=== PATIENT | male | born 1965 | race Caucasian/White ===

== ENCOUNTER → 2020-10-15 | Outpatient (CLI) | payer OTHER, SELFPAY ==
[2020-10-15 13:32] LABS: Lipase 279 U/L (73-393)
== END | disposition home or self-care (01) ==
LOC: LABSPEC 13:08
PROVIDERS: Referring Provider Family Medicine; Visit Provider Family Medicine
DX: R10.30 Lower abdominal pain, unspecified (principal)
CPT/HCPCS: 83690

== ENCOUNTER 2021-03-09 07:13 | Day surgery (SDC) | payer OTHER, SELFPAY ==
[2021-03-09] VITALS (7 sets, daily range): BP systolic 88–112; BP diastolic 53–84; PULSE 52–64; RESP 12–18; TEMP 35.8–36.3; O2SAT 98–100; BMI 22.5
[2021-03-09] MEDS: Lactated Ringers 1,000 ML 100 ML IV (07:55)
--- NOTE | 2021-03-09 08:25 | HP.PCM_ITS ---
History and Physical Date of Admission: 03/09/21 Intake Vital Signs 02/16/21 10:09 Height 5 ft 11 in Weight: 161 lb BMI 22.4 BP 113/77 Blood Pressure Location Rt brachial Position Sitting Respiration 16 Intake Visit Reasons: LEFT LOWER QUADRANT PAIN, CSCOPE Chief Complaint: llq abdominal pain Court Worker Required: No Is patient in pain?: Yes Allergies No Known Allergies Allergy (Verified 02/16/21 10:10) Medications azithromycin 250 mg tablet See Rx Instructions PO .COMPLEX #6 tab 02/16/21 [Rx Confirmed 02/16/21] cholecalciferol (vitamin D3) 50 mcg (2,000 unit) capsule 50 mcg PO DAILY 02/16/21 [History Confirmed 02/16/21] multivitamin 1 tab PO DAILY 02/16/21 [History Confirmed 02/16/21] omeprazole 40 mg capsule,delayed release 40 mg PO DAILY #60 cap 02/16/21 [Rx Confirmed 02/16/21] sucralfate 1 gram tablet 1 g PO QACHS #90 tab 02/16/21 [Rx Confirmed 02/16/21] PFSH Medical History Shoulder injury Family History Father Cancer Thyroid disorder Mother Asthma Social History Smoking Status: Never smoker alcohol intake: current alcohol intake frequency: a few times a week HPI HPI HPI: GALILEO DIEGO, is a 55 M who presents to the office today for several issues. The patient has been having left lower quadrant pain for years and he is only having diarrhea or very small bowel movements. The patient also reports left upper quadrant pain and GERD. Patient did try a short trial of omeprazole which did help his GERD but did not change the diarrhea or the bloating or lower abdominal pain. Patient has never had a colonoscopy in the past. He denies any family history of colon cancer. ROS General General: Yes weight change and fatigue; No appetite, colon cancer, breast cancer or weakness HEENT HEENT: Yes difficulty swallowing; No eye injury, eye surgery, swollen glands or hoarseness Endo Endocrine: Yes thyroid disease; No diabetes mellitus, thyroid cancer, Hair loss, heat intolerance or cold intolerance Skin Skin: Yes rash; No changing moles Breast Breast: No left breast lump, right breast lump, nipple discharge, breast pain, abnormal mammogram, abnormal US or breast enlargement Musc Musculoskeletal: Yes back problems, arthritis and rheumatoid arthritis; No gout or joint pain Cardio Cardiovascular: No murmur, pacemaker, heart disease, atrial fibrillation, high blood pressure, heart attack, heart stent, palpitations, shortness of breat with exertion or chest pain Psych Psychiatric: No depression, anxiety or hearing voices Resp Respiratory: No shortness of breath, No sleep apnea, Yes cough, No COPD, No asthma, No emphysema and No wheezing Gastro Gastrointestinal: Yes abdominal pain, No nausea or vomiting, Yes diarrhea, No constipation, No blood in stool, Yes acid reflux, No hemorrhoids, Yes ulcers, Yes gallbladder problem and Yes black,tarry stools [place] Hematologic: No blood thinners, No blood disorders, No bleeding, No anemia and No blood clots Neuro Neurologic: No system reviewed and no additional complaints, except as documented, No as per HPI, No abnormal gait, No abnormal hearing, No abnormal movements, No abnormal speech, No behavioral changes, No burning sensations, No confusion, No convulsions, No disequilibrium, No dizziness, No localized weakness, No frequent falls, No headache(s), No lack of coordination, No loss of vision, No memory loss, No numbness, No other visual disturbances, No radicular pain, No restless legs, No sensory deficit, No syncope, No tingling, No tremor(s), No weakness and No other Exam Const General: cooperative Orientation: alert and oriented x3 HENMT Head: normal to inspection Neck Neck: normal visual inspection and full ROM Chest Chest palpation & inspection: normal inspection of the chest Resp Effort & Inspection: normal respiratory effort Auscultation: clear to auscultation bilaterally Cardio Rate: regular rate Rhythm: regular rhythm GI Inspection: non-distended Palpation: soft and tender in the LLQ Skin General: no rashes or lesions noted Neuro General: patient alert and patient oriented x3 Extrem General: full ROM Psych Appearance: grossly normal Mental Status: mental status grossly normal Assessment and Plan Assessment and Plan (1) Diarrhea: Status: Acute Qualifiers: Diarrhea type: unspecified type Qualified Code(s): R19.7 - Diarrhea, unspecified (2) LLQ pain: Status: Acute (3) LUQ pain: Status: Acute (4) GERD (gastroesophageal reflux disease): Status: Acute Qualifiers: Esophagitis presence: esophagitis presence not specified Qualified Code(s): K21.9 - Gastro-esophageal reflux disease without esophagitis Orders: Orders: Colonoscopy Today R19.7, R10.32 EGD Today R10.12, K21.9 Plan - Dr. Alvin Mitchell MD: The patient is having diarrhea and has been having left lower quadrant pain for years and has never had a colonoscopy. Patient is also having left upper quadrant pain. The patient also describes stool caliber changes and chronic diarrhea. Patient recently had a CT scan which was normal. He denies any blood in his stool or nausea or vomiting. No fevers or chills. I will start the patient on omeprazole and Carafate. The patient was also having a sinus infection so I will give him a Z-Edmond. I will also plan on EGD and colonoscopy. I explained endoscopy in detail to the patient. I explained the risks including but not limited to stroke or heart attack with anesthesia, perforation of the GI tract, bleeding, infection. I explained that any of these could necessitate further emergency surgery. The patient understands and all questions were answered sufficiently. The patient wishes to proceed with procedure. Alvin Mitchell MD Pager: [facility] [address] [place] [address], [address] [place] [address] Office: I have re-examined the patient. There are no clinical changes since date of exam.
--- NOTE | 2021-03-09 08:30 | IMM_PTH ---
PATIENT: GALILEO DIEGO LOC: EN U#:[id number] AGE/SX: 55/M ROOM: RE03/09/[address]: Dr. Alvin Mitchell MD : 1965 BED: DIS: 03/09/2021 SPEC #: [id number] RECD: 03/09/21 12:29 STATUS: BERNABE SCOT #: [id number] LATHA: 03/09/21 08:[address]: Alvin Mitchell DEPT: IMMUNOHISTOCHEMISTRY RECD BY: Ludmila Lindsay ENTERED: 03/09/21 12:29 SP TYPE: IMMUNO OTHR DR: Dr. Marian Tran MD Tissues: A - Stomach, NOS Procedures: H Pylori (initial) PHYSICIAN & INSTITUTION [facility] [id number] SPECIMEN INFORMATION: Tissue Source: A ? Antrum biopsy Clinical Info: Diarrhea, LLQ pain, LUQ pain, GERD Specimen Number: [id number] CPT code: 56591 METHODOLOGY: Deparaffinized sections of prefer/formalin-fixed tissue or PAP/DQ stained slides are incubated with monoclonal/polyclonal antibodies/oligonucleotide probes. Localization is made via biotin free immunoperoxidase method. Appropriate controls are performed and reacted as expected. Results on target cell population are indicated in the following table: RESULTS: ANTIBODY / CLONE RESULT Block A H Pylori (polyclonal) negative These tests were developed and their performance characteristics determined by [facility]. They may not have been cleared or approved by the U.S. Food and Drug Administration. The FDA has determined that such clearance or approval is not necessary. INTERPRETATION: A. Antrum biopsy: Negative for Helicobacter pylori organisms. CHANCE:jose 03/10/2021
--- NOTE | 2021-03-09 08:30 | EGD_PTH ---
PATIENT: GALILEO DIEGO LOC: EN U#:[id number] AGE/SX: 55/M ROOM: RE03/09/[address]: Dr. Alvin Mitchell MD : 1965 BED: DIS: 03/09/2021 SPEC #: [id number] RECD: 03/09/21 11:42 STATUS: BERNABE SCOT #: [id number] LATHA: 03/09/21 08:[address]: Alvin Mitchell DEPT: SURGICAL PATHOLOGY RECD BY: Lizeth Solorzano ENTERED: 03/09/21 13:20 SP TYPE: EGD BIOPSY [facility] DR: Dr. Marian Tran MD Tissues: A - Gastric mucous membrane B - Stomach, NOS C - Cecum, NOS D - Cecum, NOS E - COLON BIOPSY F - Sigmoid colon biopsy Procedures: Surgery Specimen Level IV HEADER OPERATION: Colonoscopy, EGD ([facility] [place]) PRE-OP DIAGNOSIS: Diarrhea, LLQ pain, LUQ pain, GERD TISSUE SUBMITTED: A ? Biopsy antrum for H. pylori and path, B ? Biopsy GE junction, C ? Biopsy of cecal polyp, D ? Biopsy ileocecal valve, E ? Hepatic flexure polyp, F ? Sigmoid polyps MICROSCOPIC DIAGNOSIS A. Antrum, biopsy: Mild gastritis. See microscopic description and comment. B. GE junction, biopsy: Fragments of squamous mucosa with focal minimal chronic inflammation. C. Cecal polyp, biopsy: Fragments of tubulovillous adenoma. D. Ileocecal valve, biopsy: Focal acute inflammation, congestion and vascular ectasia. See comment. E. Hepatic flexure polyp, biopsy: Fragments of tubular adenoma. F. Sigmoid polyps, biopsy: Hyperplastic polyp. SJ:jose 03/10/2021 COMMENT A. The results of immunohistochemistry for Helicobacter pylori will be reported separately ([id number]). D. Cryptitis, crypt abscess or granulomas are not seen. Correlation with clinical, endoscopic findings and appropriate follow up are necessary. MICROSCOPIC DESCRIPTION Slides are reviewed. A. The specimen shows fragments of gastric mucosa with chronic inflammatory cell infiltrates in the lamina propria consisting of lymphocytes and plasma cells, consistent with mild chronic gastritis. GROSS DESCRIPTION A - Received in fixative is one container labeled with the patient's name and designated antrum biopsy. The specimen consists of two irregular fragments of light rosenthal soft tissue that in aggregate measure 0.4 x 0.3 x 0.1 cm. The specimen is totally submitted in one cassette. B - Received in fixative is one container labeled with the patient's name and designated biopsy GE junction. The specimen consists of two irregular fragments of light rosenthal soft tissue that in aggregate measure 0.6 x 0.2 x 0.1 cm. The specimen is totally submitted in one cassette. C - Received in fixative is one container labeled with the patient's name and designated biopsy of cecal polyp. The specimen consists of multiple irregular fragments of light rosenthal soft tissue that in aggregate measure 1.3 x 0.5 x 0.1 cm. The specimen is totally submitted in one cassette. D - Received in fixative is one container labeled with the patient's name and designated biopsy ileocecal valve. The specimen consists of two irregular fragments of light rosenthal soft tissue that in aggregate measure 0.5 x 0.2 x 0.1 cm. The specimen is totally submitted in one cassette. E - Received in fixative is one container labeled with the patient's name and designated hepatic flexure polyp. The specimen consists of multiple irregular fragments of light rosenthal soft tissue that in aggregate measure 1 x 0.3 x 0.2 cm. The specimen is totally submitted in one cassette. F - Received in fixative is one container labeled with the patient's name and designated sigmoid polyp. The specimen consists of two irregular fragments of light rosenthal soft tissue that in aggregate measure 0.5 x 0.3 x 0.2 cm. The specimen is totally submitted in one cassette. / SJ:rg 03/09/21 TC:1 CPT: 85216 x6
--- NOTE | 2021-03-09 09:07 | OP.EGD_ITS ---
Patient Name: Cj Lopez Procedure Date: 03/09/2021 7:47 AM Date of : 1965 Age: 55 Procedure: Upper GI endoscopy Indications: Abdominal pain in the left upper quadrant Providers: Alvin Mitchell MD Referring MD: Marian Tran Medicines: Monitored Anesthesia Care Patient Profile: This is a 55 year old male. Refer to note in patient chart for documentation of history and physical. Complications: No immediate complications. Estimated blood loss: Minimal. Procedure: Pre-Anesthesia Assessment: - Prior to the procedure, a History and Physical was performed, and patient medications and allergies were reviewed. The patient's tolerance of previous anesthesia was also reviewed. The risks and benefits of the procedure and the sedation options and risks were discussed with the patient. All questions were answered, and informed consent was obtained. Prior Anticoagulants: The patient has taken no previous anticoagulant or antiplatelet agents. After reviewing the risks and benefits, the patient was deemed in satisfactory condition to undergo the procedure. After obtaining informed consent, the endoscope was passed under direct vision. Throughout the procedure, the patient's blood pressure, pulse, and oxygen saturations were monitored continuously. The gastroscope was introduced through the mouth, and advanced to the second part of duodenum. The upper GI endoscopy was accomplished without difficulty. The patient tolerated the procedure well. Scope In: 8:35:32 AM Scope Out: 8:38:13 AM Total Procedure Duration Time 0 hours 2 minutes 41 seconds Findings: Esophagitis with no bleeding was found at the gastroesophageal junction. Biopsies were taken with a cold forceps for histology. Localized mild inflammation was found in the gastric antrum. Biopsies were taken with a cold forceps for Helicobacter pylori testing. Impression: - Reflux esophagitis. Biopsied. - Gastritis. Biopsied. Recommendation: - Discharge patient to home. - Resume previous diet. - Continue present medications. - Await pathology results. Procedure Code(s): --- Professional --- 55069, Esophagogastroduodenoscopy, flexible, transoral; with biopsy, single or multiple Diagnosis Code(s): --- Professional --- K21.0, Gastro-esophageal reflux disease with esophagitis K29.70, Gastritis, unspecified, without bleeding R10.12, Left upper quadrant pain CPT copyright 2017 [employer]. All rights reserved. The codes documented in this report are preliminary and upon stone repairer review may be revised to meet current compliance requirements. Alvin Mitchell MD 03/09/2021 9:07:28 AM This report has been signed electronically. Number of Addenda: 0 Note Initiated On: 03/09/2021 7:47 AM
--- NOTE | 2021-03-09 09:08 | OP.CCLET_ITS ---
03/09/2021 Marian Tran [facility] [address] [place] [address] Re : Upper GI endoscopy procedure for Cj Lopez Dear Dr. Tran This procedure was performed on Tuesday, March 09, 2021. My impressions and recommendations are as follows: Impressions : - Reflux esophagitis. Biopsied. - Gastritis. Biopsied. Recommendations : - Discharge patient to home. - Resume previous diet. - Continue present medications. - Await pathology results. My findings are described in the full procedure note, which is enclosed. If I can be of further assistance, please feel free to contact me at Doctor phone number(s): , Work: . Sincerely, Alvin Mitchell MD 03/09/2021 9:07:28 AM This report has been signed electronically.
--- NOTE | 2021-03-09 09:13 | OP.COLON_ITS ---
Patient Name: Cj Lopez Procedure Date: 03/09/2021 8:39 AM Date of : 1965 Age: 55 Procedure: Colonoscopy Indications: Abdominal pain in the left lower quadrant, Chronic diarrhea Providers: Alvin Mitchell MD Referring MD: Marian Tran Medicines: Monitored Anesthesia Care Patient Profile: This is a 55 year old male. Refer to note in patient chart for documentation of history and physical. Last Colonoscopy: none. The patient's first colonoscopy is today. Complications: No immediate complications. Estimated blood loss: Minimal. Procedure: Pre-Anesthesia Assessment: - Prior to the procedure, a History and Physical was performed, and patient medications and allergies were reviewed. The patient's tolerance of previous anesthesia was also reviewed. The risks and benefits of the procedure and the sedation options and risks were discussed with the patient. All questions were answered, and informed consent was obtained. Prior Anticoagulants: The patient has taken no previous anticoagulant or antiplatelet agents. After reviewing the risks and benefits, the patient was deemed in satisfactory condition to undergo the procedure. After I obtained informed consent, the scope was passed under direct vision. Throughout the procedure, the patient's blood pressure, pulse, and oxygen saturations were monitored continuously. The colonoscope was introduced through the anus and advanced to the cecum, identified by appendiceal orifice and ileocecal valve. The colonoscopy was performed without difficulty. The patient tolerated the procedure well. The quality of the bowel preparation was good. Scope In: 8:41:14 AM Scope Withdrawal Time 0 hours 14 minutes 45 seconds Scope Out: 9:02:37 AM Total Procedure Duration Time 0 hours 21 minutes 23 seconds Findings: A large polyp was found in the cecum. The polyp was sessile. Biopsies were taken with a cold forceps for histology. A medium polyp was found in the hepatic flexure. The polyp was removed with a hot snare. Resection and retrieval were complete. Two pedunculated polyps were found in the sigmoid colon. These polyps were removed with a hot snare. Resection and retrieval were complete. An area of mildly congested mucosa was found at the ileocecal valve. This was biopsied with a cold forceps for histology. The retroflexed view of the distal rectum and anal verge was normal and showed no anal or rectal abnormalities. Impression: - One large polyp in the cecum. Biopsied. - One medium polyp at the hepatic flexure, removed with a hot snare. Resected and retrieved. - Two polyps in the sigmoid colon, removed with a hot snare. Resected and retrieved. - Congested mucosa at the ileocecal valve. Biopsied. - The distal rectum and anal verge are normal on retroflexion view. Recommendation: - Discharge patient to home. - Resume previous diet. - Continue present medications. - Await pathology results. - Repeat colonoscopy date to be determined after pending pathology results are reviewed for surveillance based on pathology results. Procedure Code(s): --- Professional --- 17055, Colonoscopy, flexible; with removal of tumor(s), polyp(s), or other lesion(s) by snare technique 78480, 59, Colonoscopy, flexible; with biopsy, single or multiple Diagnosis Code(s): --- Professional --- D12.0, Benign neoplasm of cecum D12.3, Benign neoplasm of transverse colon (hepatic flexure or splenic flexure) D12.5, Benign neoplasm of sigmoid colon K63.89, Other specified diseases of intestine R10.32, Left lower quadrant pain K52.9, Noninfective gastroenteritis and colitis, unspecified CPT copyright 2017 [employer]. All rights reserved. The codes documented in this report are preliminary and upon cnc supervisor review may be revised to meet current compliance requirements. Alvin Mitchell MD 03/09/2021 9:12:51 AM This report has been signed electronically. Number of Addenda: 0 Note Initiated On: 03/09/2021 8:39 AM
--- NOTE | 2021-03-09 09:13 | OP.CCLET_ITS ---
03/09/2021 Marian Tran [facility] [address] [place] [address] Re : Colonoscopy procedure for Cj Lopez Dear Dr. Tran This procedure was performed on Tuesday, March 09, 2021. My impressions and recommendations are as follows: Impressions : - One large polyp in the cecum. Biopsied. - One medium polyp at the hepatic flexure, removed with a hot snare. Resected and retrieved. - Two polyps in the sigmoid colon, removed with a hot snare. Resected and retrieved. - Congested mucosa at the ileocecal valve. Biopsied. - The distal rectum and anal verge are normal on retroflexion view. Recommendations : - Discharge patient to home. - Resume previous diet. - Continue present medications. - Await pathology results. - Repeat colonoscopy date to be determined after pending pathology results are reviewed for surveillance based on pathology results. My findings are described in the full procedure note, which is enclosed. If I can be of further assistance, please feel free to contact me at Doctor phone number(s): , Work: . Sincerely, Alvin Mitchell MD 03/09/2021 9:12:51 AM This report has been signed electronically.
== END 2021-03-09 10:09 ==
LOC: EN 07:13 → AC 07:14
PROVIDERS: PCP Internal Medicine; Referring Provider Internal Medicine; Visit Provider Surgery
PROC: 0DJD8ZZ Inspection of Lower Intestinal Tract, Via Natural or Artificial Opening Endoscopic (ICD-10-PCS; CPT 45378; principal; 2021-03-09 08:25)
DX: R10.12 Left upper quadrant pain (principal); D12.0 Benign neoplasm of cecum; D12.3 Benign neoplasm of transverse colon; D12.5 Benign neoplasm of sigmoid colon; K29.70 Gastritis, unspecified, without bleeding; K21.00 Gastro-esophageal reflux disease with esophagitis, without bleeding; K52.9 Noninfective gastroenteritis and colitis, unspecified; K63.89 Other specified diseases of intestine
CPT/HCPCS: 43239; 45380; 45385; 87426; 88305; 88342; C9803; J7120; J2405

== ENCOUNTER 2021-06-28 05:58 | Day surgery (SDC) | payer OTHER, SELFPAY ==
[2021-06-28] VITALS (8 sets, daily range): BP systolic 92–112; BP diastolic 57–76; PULSE 53–94; RESP 16–18; TEMP 36.2–36.7; O2SAT 98–100; BMI 22.4
--- NOTE | 2021-06-28 07:00 | COLBX_PTH ---
PATIENT: GALILEO DIEGO LOC: EN U#:[id number] AGE/SX: 55/M ROOM: RE06/28/[address]: Dr. Norris Degroot DO : 1965 BED: DIS: 06/28/2021 SPEC #: [id number] RECD: 06/28/21 12:31 STATUS: BERNABE SCOT #: [id number] LATHA: 06/28/21 07:[address]: Norris Degroot DEPT: SURGICAL PATHOLOGY RECD BY: Lizeth Solorzano ENTERED: 06/28/21 13:14 SP TYPE: COLON BX OTHR DR: Dr. Marian Tran MD Tissues: Cecum, NOS Procedures: Surgery Specimen Level IV HEADER OPERATION: Colonoscopy with Erbelift and polypectomy (MAC) PRE-OP DIAGNOSIS: Colon polyps TISSUE SUBMITTED: Cecal polyp MICROSCOPIC DIAGNOSIS Cecal polyps, polypectomy: Fragments of tubulovillous adenoma. SJ:jose 06/29/2021 MICROSCOPIC DESCRIPTION Slides are reviewed. GROSS DESCRIPTION Received in fixative is one container labeled with the patient's name and designated cecal polyp. The specimen consists of multiple irregular fragments of light rosenthal soft tissue that in aggregate measure 2.5 x 2 x 0.2 cm. The specimen is totally submitted in one cassette. / AM:jose 06/28/2021 TC:1 CPT: 54982
--- NOTE | 2021-06-28 07:25 | HP.PCM_ITS ---
History and Physical Date of Admission: 06/28/21 [facility] Medical History Shoulder injury Family History Father Cancer Thyroid disorder Mother Asthma Social History Smoking Status: Never smoker alcohol intake: current alcohol intake frequency: a few times a week HPI HPI HPI: GALILEO DIEGO, is a 55 M who presents for repeat colonoscopy. The patient underwent colonoscopy 3 months ago and had several polyps removed. 1 of which was too large to be removed safely at the time. He is not having any bleeding issues. He is not have abdominal pain. He is not have any chest pain or shortness of breath. He is not having any weakness. Overall he is a good state of health. ROS General General: Yes weight change and fatigue; No appetite, colon cancer, breast cancer or weakness HEENT HEENT: Yes difficulty swallowing; No eye injury, eye surgery, swollen glands or hoarseness Endo Endocrine: Yes thyroid disease; No diabetes mellitus, thyroid cancer, Hair loss, heat intolerance or cold intolerance Skin Skin: Yes rash; No changing moles Breast Breast: No left breast lump, right breast lump, nipple discharge, breast pain, abnormal mammogram, abnormal US or breast enlargement Musc Musculoskeletal: Yes back problems, arthritis and rheumatoid arthritis; No gout or joint pain Cardio Cardiovascular: No murmur, pacemaker, heart disease, atrial fibrillation, high blood pressure, heart attack, heart stent, palpitations, shortness of breat with exertion or chest pain Psych Psychiatric: No depression, anxiety or hearing voices Resp Respiratory: No shortness of breath, No sleep apnea, Yes cough, No COPD, No asthma, No emphysema and No wheezing Gastro Gastrointestinal: Yes abdominal pain, No nausea or vomiting, Yes diarrhea, No constipation, No blood in stool, Yes acid reflux, No hemorrhoids, Yes ulcers, Yes gallbladder problem and Yes black,tarry stools [place] Hematologic: No blood thinners, No blood disorders, No bleeding, No anemia and No blood clots Neuro Neurologic: No system reviewed and no additional complaints, except as documented, No as per HPI, No abnormal gait, No abnormal hearing, No abnormal movements, No abnormal speech, No behavioral changes, No burning sensations, No confusion, No convulsions, No disequilibrium, No dizziness, No localized weakness, No frequent falls, No headache(s), No lack of coordination, No loss of vision, No memory loss, No numbness, No other visual disturbances, No radicular pain, No restless legs, No sensory deficit, No syncope, No tingling, No tremor(s), No weakness and No other Exam Const General: cooperative Orientation: alert and oriented x3 HENMT Head: normal to inspection Neck Neck: normal visual inspection and full ROM Chest Chest palpation & inspection: normal inspection of the chest Resp Effort & Inspection: normal respiratory effort Auscultation: clear to auscultation bilaterally Cardio Rate: regular rate Rhythm: regular rhythm GI Inspection: non-distended Palpation: soft and tender in the LLQ Skin General: no rashes or lesions noted Neuro General: patient alert and patient oriented x3 Extrem General: full ROM Psych Appearance: grossly normal Mental Status: mental status grossly normal Assessment and Plan Assessment and Plan 1-multiple polyps removed on previous colonoscopy 2 -previous incomplete colonoscopy Plan - The patient was explained alternatives, risk, benefits including not withstanding bleeding, infection, sepsis, perforation, need for emergent surgery . He will have an ASA of 1.
[2021-06-28] MEDS: Lactated Ringers 1,000 ML 15 ML IV ×2 (07:30→08:15)
[2021-06-28] MEDS: 0.9% Saline Lock 10 ML Syringe IV (07:49)
--- NOTE | 2021-06-28 08:36 | OP.COLON_ITS ---
Patient Name: Cj Lopez Procedure Date: 06/28/2021 7:27 AM Date of : 1965 Age: 55 Procedure: Colonoscopy Indications: For therapy of adenomatous polyps in the colon Providers: Norris Degroot DO Medicines: See the Anesthesia note for documentation of the administered medications Patient Profile: Last Colonoscopy: within the past 3 months. Complications: No immediate complications. Procedure: Pre-Anesthesia Assessment: - Prior to the procedure, a History and Physical was performed, and patient medications and allergies were reviewed. The patient is competent. The risks and benefits of the procedure and the sedation options and risks were discussed with the patient. All questions were answered and informed consent was obtained. Patient identification and proposed procedure were verified by the physician in the pre-procedure area. Mental Status Examination: alert and oriented. Airway Examination: normal oropharyngeal airway and neck mobility. Respiratory Examination: clear to auscultation. CV Examination: normal. Prophylactic Antibiotics: The patient does not require prophylactic antibiotics. Prior Anticoagulants: The patient has taken no previous anticoagulant or antiplatelet agents. ASA Grade Assessment: II - A patient with mild systemic disease. After reviewing the risks and benefits, the patient was deemed in satisfactory condition to undergo the procedure. The anesthesia plan was to use moderate sedation / analgesia (conscious sedation). Immediately prior to administration of medications, the patient was re-assessed for adequacy to receive sedatives. The heart rate, respiratory rate, oxygen saturations, blood pressure, adequacy of pulmonary ventilation, and response to care were monitored throughout the procedure. The physical status of the patient was re-assessed after the procedure. After I obtained informed consent, the scope was passed under direct vision. Throughout the procedure, the patient's blood pressure, pulse, and oxygen saturations were monitored continuously. The Colonoscope was introduced through the anus and advanced to the cecum, identified by appendiceal orifice and ileocecal valve. The colonoscopy was performed without difficulty. The patient tolerated the procedure well. The quality of the bowel preparation was good. Moderate Sedation: Moderate (conscious) sedation was administered by the endoscopy nurse and supervised by the endoscopist. The following parameters were monitored: oxygen saturation, heart rate, blood pressure, and response to care. Total physician intraservice time was 15 minutes. Scope In: 7:39:28 AM Scope Withdrawal Time 0 hours 38 minutes 20 seconds Scope Out: 8:27:46 AM Total Procedure Duration Time 0 hours 48 minutes 18 seconds Findings: The perianal and digital rectal examinations were normal. A 13 mm polyp was found in the cecum. The polyp was sessile. The polyp was removed with a saline injection-lift technique using a hot snare at 20 jimenez. Resection and retrieval were complete using a Olmos net. Three hemostatic clips were successfully placed. Coagulation for destruction of remaining portion of lesion using argon plasma at 0.3 liters/minute and 20 jimenez was successful. Area was successfully injected with 5 mL Soco ink for lesion assessment, and this injection appeared to lift the lesion adequately. Area was successfully injected with 5 mL of a 1:10,000 solution of epinephrine for muscle relaxation. Estimated blood loss was minimal. The exam was otherwise without abnormality on direct and retroflexion views. Impression: - One 13 mm polyp in the cecum, removed using injection-lift and a hot snare. Resected and retrieved. Clips were placed. Treated with argon plasma coagulation (APC). Injected. - The examination was otherwise normal on direct and retroflexion views. Recommendation: - Discharge patient to home. - Resume previous diet. - No aspirin, ibuprofen, naproxen, or other non-steroidal anti-inflammatory drugs for 6 days after polyp removal. - Repeat colonoscopy in 1 year for surveillance after piecemeal polypectomy. Procedure Code(s): --- Professional --- 44172, Colonoscopy, flexible; with removal of tumor(s), polyp(s), or other lesion(s) by snare technique 65465, Colonoscopy, flexible; with directed submucosal injection(s), any substance 55971, 59, Moderate sedation services provided by the same physician or other qualified health childcare center director performing the diagnostic or therapeutic service that the sedation supports, requiring the presence of an independent trained observer to assist in the monitoring of the patient's level of consciousness and physiological status; initial 15 minutes of intraservice time, patient age 5 years or older CPT copyright 2017 [employer]. All rights reserved. The codes documented in this report are preliminary and upon wood mill supervisor review may be revised to meet current compliance requirements. Norris Degroot DO 06/28/2021 8:35:34 AM This report has been signed electronically. Number of Addenda: 1 Note Initiated On: 06/28/2021 7:27 AM Addendum Number: 1 Addendum Date: 02/10/2022 6:22:07 AM MAC was used instead of moderate sedation for the patient. Norris Degroot, 02/10/2022 6:22:11 AM This report has been signed electronically.
--- NOTE | 2021-06-28 08:36 | OP.CCLET_ITS ---
02/10/2022 Marian Tran [facility] [address] [place] [address] Re : Colonoscopy procedure for Cj Lopez Dear Dr. Tran This procedure was performed on Monday, June 28, 2021. My impressions and recommendations are as follows: Impressions : - One 13 mm polyp in the cecum, removed using injection-lift and a hot snare. Resected and retrieved. Clips were placed. Treated with argon plasma coagulation (APC). Injected. - The examination was otherwise normal on direct and retroflexion views. Recommendations : - Discharge patient to home. - Resume previous diet. - No aspirin, ibuprofen, naproxen, or other non-steroidal anti-inflammatory drugs for 6 days after polyp removal. - Repeat colonoscopy in 1 year for surveillance after piecemeal polypectomy. My findings are described in the full procedure note, which is enclosed. If I can be of further assistance, please feel free to contact me at . Sincerely, Norris Degroot, 06/28/2021 8:35:34 AM This report has been signed electronically.
== END 2021-06-28 23:59 | disposition home or self-care (01) ==
LOC: EN 06:05 → AC 06:07
PROVIDERS: PCP Internal Medicine; Referring Provider Internal Medicine; Visit Provider Internal Medicine Gastroenterology
PROC: 0DJD8ZZ Inspection of Lower Intestinal Tract, Via Natural or Artificial Opening Endoscopic (ICD-10-PCS; CPT 45378; principal; 2021-06-28 06:55)
DX: D12.0 Benign neoplasm of cecum (principal); Z86.010 Personal history of colon polyps; K21.9 Gastro-esophageal reflux disease without esophagitis
CPT/HCPCS: 45385; 45381; 87426; 88305; J7120; A4216; A4648; J2405

== ENCOUNTER → 2022-01-05 | Outpatient (CLI) | payer OTHER, SELFPAY ==
--- NOTE | 2022-01-05 15:42 | RAD_ITS ---
EXAM: XR CHEST, 2 VIEWS CLINICAL INDICATION: Dyspnea on exertion TECHNIQUE: Frontal and lateral views of the chest. This report was created using [employer] report generation technology. COMPARISON: XR Chest dated 10/28/2015 FINDINGS: LUNGS AND PLEURAL SPACES: Normal. No consolidation or edema. No pneumothorax. No effusion. HEART: Normal. Normal heart size. MEDIASTINUM: Central airways and mediastinal contour are unremarkable. BONES/JOINTS: Normal. SOFT TISSUES: Normal. RAD/Chest PA and Lateral IMPRESSION: No acute cardiopulmonary abnormality. No interval change. Electronically Signed: Catarino Gan MD at 16:39 EDT ,
[2022-01-05 16:37] LABS: Absolute Lymphocyte Count 2.23 X10^3/uL (0.83-4.51); Absolute Neutrophil Count 4.8 X10^3/uL (2.0-7.7); Basophil# 0.05 X10^3/uL; Basophil% 0.6 % (0-1); Eosinophil# 0.09 X10^3/uL; Eosinophils% 1.2 % (0-5); Hematocrit 44.7 % (40-54); Hemoglobin 15.3 g/dL (13.0-16.5); Lymphocyte # 2.23 X10^3/ul (0.83-4.51); Mean Corp Hgb Conc 34.2 g/dL (32-36); Mean Corpuscular Hgb 31.2 pg (27.0-32.0); Mean Corpuscular Volume 91.2 fL (80-94); Mean Platelet Vol. 9.8 fl (6.2-12.0); Monocyte# 0.56 X10^3/uL; Monocyte% 7.3 % (0-10); NRBC Flagged by Analyzer 0 % (0-5); Neutrophil # 4.75 X10^3/uL (2.7-7.7); Neutrophil % 61.6 % (47-70); Platelet Count 258 K/mm3 (150-450); RBC Distribution Width CV 13.8 % (11.6-14.6); RBC Distribution Width SD 46.6 fl (35.1-43.9); White Blood Count 7.7 K/mm3 (4.4-11.0)
[2022-01-05 17:16] LABS: Vitamin D,25 Hydroxy 72.1 ng/mL
[2022-01-05 18:51] LABS: AST(SGOT) 21 U/L (15-37); Alanine Aminotransfer ALT/SGPT 35 U/L (16-61); Albumin, Serum 3.9 g/dL (3.2-5.0); Alkaline Phosphatase 66 U/L (45-117); Anion Gap 4 (5-15); BUN 16 mg/dL (7-18); BUN/Creat Ratio 14.7 RATIO (10-20); Calcium,Total 9.3 mg/dL (8.5-10.1); Chloride 106 mmol/L (98-107); Cholesterol 191 mg/dL (200); Creatinine, Serum 1.09 mg/dL (0.70-1.30); EST Glomerular Filtration Rate 75 mL/min (>60); Est Glom Filt Rate - Afr Amer 90 mL/min (>60); Free T3 2.8 pg/mL (2.18-3.98); Globulin 3.8 g/dL (2.2-4.2); Glucose 81 mg/dL (74-106); High Density Lipoprotein 69 mg/dL; PSA,Total - Annual Screen 0.61 ng/mL (0.00-4.00); Potassium 4.3 mmol/L (3.5-5.1); Protein, Total 7.7 g/dL (6.4-8.2); Sodium Level 139 mmol/L (136-145); T4 Free Direct 0.95 ng/dL (0.76-1.46); Thyroid Stim Hormone (TSH) 6.72 uIU/mL (0.358-3.74); Triglycerides 56 mg/dL; Very Low Density Lipoprotein 11 mg/dL (5-40)
== END | disposition home or self-care (01) ==
LOC: LAB 15:41
PROVIDERS: PCP Internal Medicine; Referring Provider Internal Medicine; Visit Provider Internal Medicine
DX: Z00.00 Encounter for general adult medical examination without abnormal findings (principal); Z12.5 Encounter for screening for malignant neoplasm of prostate; E03.9 Hypothyroidism, unspecified; E55.9 Vitamin D deficiency, unspecified; K21.9 Gastro-esophageal reflux disease without esophagitis; R53.83 Other fatigue; R06.09 Other forms of dyspnea; F17.200 Nicotine dependence, unspecified, uncomplicated
CPT/HCPCS: 36415; 71046; 80053; 80061; 82306; 84153; 84439; 84443; 84481; 85025; G0103

== ENCOUNTER → 2022-08-04 | Outpatient (CLI) | payer OTHER, SELFPAY ==
[2022-08-04 17:04] LABS: Absolute Lymphocyte Count 2.38 X10^3/uL (0.83-4.51); Absolute Neutrophil Count 4.6 X10^3/uL (2.0-7.7); Basophil# 0.06 X10^3/uL; Basophil% 0.8 % (0-1); Eosinophil# 0.11 X10^3/uL; Eosinophils% 1.4 % (0-5); Hematocrit 45.3 % (40-54); Lymphocyte # 2.38 X10^3/ul (0.83-4.51); Lymphocyte % 30.4 % (19-41); Mean Corp Hgb Conc 33.1 g/dL (32-36); Mean Corpuscular Hgb 30.2 pg (27.0-32.0); Mean Corpuscular Volume 91.1 fL (80-94); Mean Platelet Vol. 9.7 fl (6.2-12.0); Monocyte# 0.69 X10^3/uL; Monocyte% 8.8 % (0-10); NRBC Flagged by Analyzer 0 % (0-5); Neutrophil # 4.55 X10^3/uL (2.7-7.7); Neutrophil % 58.1 % (47-70); Platelet Count 245 K/mm3 (150-450); RBC Distribution Width CV 13.2 % (11.6-14.6); Red Blood Count 4.97 M/mm3 (4.6-6.2); White Blood Count 7.8 K/mm3 (4.4-11.0)
[2022-08-04 17:41] LABS: AST(SGOT) 20 U/L (15-37); Alanine Aminotransfer ALT/SGPT 24 U/L (16-61); Albumin, Serum 4.1 g/dL (3.2-5.0); Alkaline Phosphatase 69 U/L (45-117); Anion Gap 3 (5-15); BUN 18 mg/dL (7-18); BUN/Creat Ratio 16.2 RATIO (10-20); Calcium,Total 9.6 mg/dL (8.5-10.1); Chloride 106 mmol/L (98-107); Cholesterol 228 mg/dL (200); Creatinine, Serum 1.11 mg/dL (0.70-1.30); EST Glomerular Filtration Rate 73 mL/min (>60); Est Glom Filt Rate - Afr Amer 88 mL/min (>60); Free T3 3.1 pg/mL (2.18-3.98); Globulin 4.1 g/dL (2.2-4.2); Glucose 88 mg/dL (74-106); High Density Lipoprotein 66 mg/dL; Iron 93 ug/dL (65-175); Iron Binding Capacity,Total 398 ug/dL (250-450); PERCENT IRON SATURATION 23.4 % (15.0-55.0); Potassium 3.9 mmol/L (3.5-5.1); Protein, Total 8.2 g/dL (6.4-8.2); Sodium Level 139 mmol/L (136-145); T4 Free Direct 0.86 ng/dL (0.76-1.46); Triglycerides 57 mg/dL; Very Low Density Lipoprotein 11 mg/dL (5-40)
== END | disposition home or self-care (01) ==
LOC: LAB 16:37
PROVIDERS: PCP Internal Medicine; Visit Provider Internal Medicine
DX: Z00.00 Encounter for general adult medical examination without abnormal findings (principal); Z86.39 Personal history of other endocrine, nutritional and metabolic disease; R53.83 Other fatigue; E03.9 Hypothyroidism, unspecified; K21.9 Gastro-esophageal reflux disease without esophagitis
CPT/HCPCS: 36415; 80053; 80061; 83540; 83550; 84439; 84443; 84481; 85025

== ENCOUNTER → 2023-06-14 | Outpatient (CLI) | payer OTHER, SELFPAY ==
[2023-06-14 16:00] LABS: Bacteria 0 SEEN /hpf (None Seen); Mucous, Urine 0 SEEN /hpf (<or=2+); Red Blood Cells-Urine 0 SEEN /hpf (0-5); Squamous Epithelial Cells - UA 0 SEEN /hpf (0-5)
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
[2023-06-14 16:32] LABS: Color, Urine Yellow (Yellow); Glucose, Dipstick Normal (Normal); Ketone-Dipstick Negative (Negative); Leukocyte Esterase-Dipstick 25 /ul (Negative); Nitrite-Dipstick Negative (Negative); Occult Blood-Urine Negative /ul (Negative); Protein-Dipstick Negative (Negative); Urine Bilirubin Dipstick Negative (Negative); Urine Clarity Clear (Clear); Urine Urobilinogen Normal (Normal)
[2023-06-14 16:35] LABS: Absolute Lymphocyte Count 2.21 X10^3/uL (0.83-4.51); Absolute Neutrophil Count 5.2 X10^3/uL (2.0-7.7); Basophil# 0.06 X10^3/uL; Basophil% 0.7 % (0-1); Eosinophil# 0.06 X10^3/uL; Eosinophils% 0.7 % (0-5); Hematocrit 42.9 % (40-54); Hemoglobin 14.7 g/dL (13.0-16.5); Lymphocyte # 2.21 X10^3/ul (0.83-4.51); Lymphocyte % 27.2 % (19-41); Mean Corp Hgb Conc 34.3 g/dL (32-36); Mean Corpuscular Hgb 30.6 pg (27.0-32.0); Mean Corpuscular Volume 89.2 fL (80-94); Mean Platelet Vol. 9.4 fl (6.2-12.0); Monocyte# 0.56 X10^3/uL; Monocyte% 6.9 % (0-10); NRBC Flagged by Analyzer 0 % (0-5); Neutrophil % 64.1 % (47-70); Platelet Count 211 K/mm3 (150-450); RBC Distribution Width CV 12.7 % (11.6-14.6); RBC Distribution Width SD 41.7 fl (35.1-43.9); Red Blood Count 4.81 M/mm3 (4.6-6.2); White Blood Count 8.1 K/mm3 (4.4-11.0)
[2023-06-14 16:40] LABS: White Blood Cells 0-5 SEEN /hpf (0-5)
[2023-06-14 17:05] LABS: Vitamin D,25 Hydroxy 43.1 ng/mL
[2023-06-14 17:14] LABS: AST(SGOT) 15 U/L (15-37); Alanine Aminotransfer ALT/SGPT 22 U/L (16-61); Albumin, Serum 3.9 g/dL (3.2-5.0); Alkaline Phosphatase 63 U/L (45-117); Anion Gap 4 (5-15); BUN 17 mg/dL (7-18); BUN/Creat Ratio 15.6 RATIO (10-20); Calcium,Total 9.9 mg/dL (8.5-10.1); Chloride 107 mmol/L (98-107); Cholesterol 226 mg/dL (200); Creatinine, Serum 1.09 mg/dL (0.70-1.30); EST Glomerular Filtration Rate 74 mL/min (>60); Est Glom Filt Rate - Afr Amer 90 mL/min (>60); Free T3 3.3 pg/mL (2.18-3.98); Globulin 3.8 g/dL (2.2-4.2); Glucose 91 mg/dL (74-106); High Density Lipoprotein 61 mg/dL; Magnesium 2.2 mg/dL (1.6-2.6); PSA,Total - Annual Screen 0.97 ng/mL (0.00-4.00); Potassium 4.2 mmol/L (3.5-5.1); Protein, Total 7.7 g/dL (6.4-8.2); Sodium Level 138 mmol/L (136-145); T4 Free Direct 0.91 ng/dL (0.76-1.46); Triglycerides 67 mg/dL; Very Low Density Lipoprotein 13 mg/dL (5-40)
== END | disposition home or self-care (01) ==
LOC: LAB 15:56
PROVIDERS: PCP Internal Medicine; Visit Provider Internal Medicine
DX: Z13.220 Encounter for screening for lipoid disorders (principal); Z12.5 Encounter for screening for malignant neoplasm of prostate; E55.9 Vitamin D deficiency, unspecified; K21.9 Gastro-esophageal reflux disease without esophagitis; R35.0 Frequency of micturition; R30.0 Dysuria; Z86.39 Personal history of other endocrine, nutritional and metabolic disease
CPT/HCPCS: 36415; 80053; 80061; 81001; 82306; 83735; 84153; 84439; 84443; 84481; 85025; G0103